=== PATIENT | male | born 1990 | race African-American/Black ===

== ENCOUNTER 2023-12-23 20:21 | Inpatient (IN) | payer SELFPAY ==
[2023-12-23] MEDS ORDERED: Ondansetron PF 4 MG/2 ML Vial IVP PRN (22:57)
[2023-12-23] MEDS ORDERED: Calcium Carbonate 500 MG ChewTAB PO PRN (22:57)
[2023-12-23] MEDS ORDERED: Senokot S 8.6-50 MG TAB PO PRN (22:57)
[2023-12-23] MEDS ORDERED: Morphine 4 MG/ML VIAL SLOW IVP PRN (22:59)
[2023-12-23 23:27] VITALS: BMI 35.0
[2023-12-23] MEDS ORDERED: Morphine 2 MG/ML VIAL SLOW IVP PRN (23:35)
[2023-12-24] MEDS: Lactated Ringer's 1,000 ML IV SCH (00:10)
[2023-12-24] MEDS: metroNIDAZOLE 500 MG in Premix 1 BAG IVPB SCH (00:10)
[2023-12-24] MEDS: LevoFLOXacin 750 mg/D5W 750 MG in Premix 1 BAG IVPB SCH (00:11)
[2023-12-24] MEDS: Potassium Chloride 20 MEQ in Premix 1 BAG IVPB SCH (00:11)
[2023-12-24 06:51] LABS: Hematocrit 38.1 % (38.8-50.0); Hemoglobin 13.2 g/dL (13.5-17.5); Mean Corpuscular HGB CONC 34.6 g/dL (32.0-36.0); Mean Corpuscular Hemoglobin 29.4 pg (27.0-33.0); Mean Corpuscular Volume 84.9 fl (81.2-95.1); Mean Platelet Volume 9.8 fl (7.4-10.4); Platelet Count 138 10x3/uL (150-450); Red Blood Cell (RBC) Count 4.49 10x6/uL (4.32-5.72); White Blood Cell (WBC) Count 5.6 10x3/uL (3.5-10.5)
[2023-12-24 06:59] LABS: MDiff Complete? YES
[2023-12-24 07:05] LABS: Anion Gap 14 mmol/L (10-20); BUN (Urea Nitrogen) 10 mg/dL (8.9-20.6); Calc. Creatinine Clearance 98 mL/min (70-130); Calcium 8.1 mg/dL (7.8-10.44); Carbon Dioxide 22 mmol/L (22-29); Chloride 103 mmol/L (98-107); Estimated GFR 59; Glucose 105 mg/dL (70-105); Potassium 3.8 mmol/L (3.5-5.1); Sodium 135 mmol/L (136-145)
[2023-12-24 07:42] LABS: Band 13 % (5-11); Eosinophils 3 % (0-10); Lymphocytes 5 % (21-51); Monocytes 1 % (0-10); Neutrophil 78 % (42-75)
[2023-12-24 07:45] LABS: Platelet Adequacy Comment Appears Decreased; RBC Morph Comment Within Normal Limits
[2023-12-24] MEDS: Famotidine/PF 20 mg/2ml Vial SLOW IVP SCH (08:59)
[2023-12-24] MEDS: HYDROcodone/Acetaminophen 5/325 mg Tablet PO PRN (09:02)
[2023-12-24] MEDS: Enoxaparin 40 MG (0.4 mL) SYRINGE SC SCH (20:14)
[2023-12-25 05:04] LABS: #Monocytes 0.3 10x3/uL (0.0-1.1); #Neutrophils 2.6 10x3/uL (1.5-8.4); %Basophils 0.3 % (0.0-2.0); %Lymphocytes 19.8 % (18.0-47.0); %Monocytes 9.1 % (0.0-10.0); %Neutrophils 70.5 % (40.0-75.0); Hematocrit 34.3 % (38.8-50.0); Hemoglobin 11.6 g/dL (13.5-17.5); Mean Corpuscular HGB CONC 33.8 g/dL (32.0-36.0); Mean Corpuscular Hemoglobin 28.6 pg (27.0-33.0); Mean Corpuscular Volume 84.7 fl (81.2-95.1); Platelet Count 139 10x3/uL (150-450); RBC Distribution Width 12.7 % (11.5-14.5); Red Blood Cell (RBC) Count 4.05 10x6/uL (4.32-5.72); White Blood Cell (WBC) Count 3.6 10x3/uL (3.5-10.5)
[2023-12-25 05:09] LABS: Anion Gap 11 mmol/L (10-20); BUN (Urea Nitrogen) 7 mg/dL (8.9-20.6); Calc. Creatinine Clearance 117 mL/min (70-130); Carbon Dioxide 26 mmol/L (22-29); Chloride 100 mmol/L (98-107); Estimated GFR 73; Glucose 122 mg/dL (70-105); Potassium 3.4 mmol/L (3.5-5.1); Sodium 134 mmol/L (136-145)
[2023-12-25] MEDS: Potassium Bicarbonate/Cit Ac 20 MEQ TAB PO SCH (09:01)
[2023-12-25] MEDS: Acetaminophen 325 MG TAB PO PRN (13:27)
[2023-12-25 13:32] VITALS: BP 136/91; TEMP 98
== END 2023-12-25 16:26 | disposition home or self-care (01) | DRG 872 ==
LOC: CSHTELE 22:03 → OBSVTOIN 22:57
PROVIDERS: ADMIT Family Medicine; ATTEND Hospitalist
DX: A41.1 Sepsis due to other specified staphylococcus (principal); K57.32 Diverticulitis of large intestine without perforation or abscess without bleeding; N17.9 Acute kidney failure, unspecified; R65.20 Severe sepsis without septic shock; N28.9 Disorder of kidney and ureter, unspecified; E87.6 Hypokalemia; N18.9 Chronic kidney disease, unspecified; Z11.52 Encounter for screening for COVID-19
CPT/HCPCS: 36415; 80048; 84145; 85025; J1650; J1956; J3480; J7120; S0028